=== PATIENT | female | born 1975 | race Two or more races ===

== ENCOUNTER 2024-06-01 02:17 | Emergency (ER) | payer MEDICAID ==
[~2024-06-01] VITALS: Ht 160 cm; Wt 81.0 kg
[2024-06-01 02:29] VITALS: BP 131/65; PULSE 68; RESP 16; TEMP 98; O2SAT 100
== END 2024-06-01 03:02 | disposition left against medical advice (07) ==
LOC: EMS 02:17
DX: R20.2 Paresthesia of skin (principal); R51.9 Headache, unspecified; Z53.21 Procedure and treatment not carried out due to patient leaving prior to being seen by health care provider